=== PATIENT | female | born 1975 | race Caucasian/White ===

== ENCOUNTER 2017-12-11 21:31 | Emergency (ER) | payer BC ==
[2017-12-11 21:48] VITALS: BMI 28.6
[2017-12-11 22:11] LABS: BILIRUBIN,URINE NEGATIVE (NEGATIVE); BLOOD/HEMOGLOBIN,URINE NEGATIVE (NEGATIVE); GLUCOSE, URINE NEGATIVE (NEGATIVE); KETONES,URINE NEGATIVE (NEGATIVE); LEUKOCYTE ESTERASE ,URINE NEGATIVE (NEGATIVE); NITRITES,URINE NEGATIVE (NEGATIVE); PH,URINE 6.5 (5.0 - 8.0); PROTEIN,URINE NEGATIVE (NEGATIVE); UROBILINOGEN,URINE NORMAL (NORMAL)
--- NOTE | 2017-12-11 22:32 | DR.GENAD ---
HPI - PCP Primary Care Physician: wang garay - Complaint/Symptoms Chief Complaint:: Patient reports tightness in chest and in upper back; shortness of breath, nausea. Patient reports chest pressure is midsternal. Hx of hypertension. Had Influenza B on the and treated with Tamiflu. Following the flu, patient had upper respiratory symptoms to which she had no antibiotics. Patient reports it is hard for her to take a deep breath. Patient reports she doesn't feel good. - Nurses notes reviewed Nurses Notes Review: Yes - Source History Provided: Patient - Mode of Arrival Mode of Arrival: Ambulatory - Timing Onset of Chief Complaint: 12/11/17 Came on: Suddenly - Duration Duration: Constant Duration: Days - Severity Severity: Moderate PMH - PMH Past Medical History: Yes Past Medical History: Hypertension Past Medical History Comment: Gestational Diabetes Past Surgical History: Yes Surgical History: Past Surgical History Comment: Eye surgery- Left - Family History History of Family Medical Conditions: No - Social History Type of Tobacco Use: None Alcohol Use: None Do you use any recreational Drugs:: No - infectious screening In the last 2 months have you had wt loss of >10#?: NO Have you had fever, night sweats or hemotysis?: No Have you traveled outside the country in the last 6 months?: No Isolation: Standard ROS - Review of Systems Constitutional: No Symptoms Reported Eyes: No Symptoms Reported ENTM: No Symptoms Reported Respiratoy: No Symptoms Reported Cardiovascular: No Symptoms Reported Gastrointestinal/Abdominal: No Symptoms Reported Genitourinary: No Symptoms Reported Neurological: No Symptoms Reported Musculoskeletal: No Symptoms Reported Integumentary: No Symptoms Reported Hematologic/Lymphatic: No Symptoms Reported All Other Systems: Reviewed and Negative PE - Vital Signs Vitals: Temperature 98.0 F Pulse Rate 65 Respiratory Rate 20 Blood Pressure 151/83 O2 Sat by Pulse Oximetry 100 - General Limitations: No Limitations General Appearance: Alert - Head Head Exam: Normal Inspection - Eyes Eye exam: Normal Appearance - ENT ENT Exam: Normal External Ear Exam External Ear Exam: Normal External Inspection TM/Canal Exam: Bilateral Normal Nose Exam: Normal Nose Exam Mouth Exam: Normal Inspection Throat Exam: Normal Inspection - Neck Neck Exam: Normal Inspection - Chest Chest Inspection: Symmetric Chest Wall Rise - Respiratory Respiratory Exam: Normal Lung Sounds Bilat Respiratory Exam: Bilateral Clear to Auscultation - Cardiovascular Cardiovascular Exam: Regular Rate, Normal Rhythm, Normal Heart Sounds - Abdominal Exam Abdominal Exam: Normal Bowel Sounds, Soft. negative: Tenderness - Extremities Extremities Exam: Normal Inspection - Back Back Exam: Normal Inspection - Neurologic Neurological Exam: Alert, Oriented X3 - Psychiatric Psychiatric Exam: Normal Affect, Normal Mood - Skin Skin Exam: Normal Color MDM - Additional Information Additional Information Obtained From: Family - Differential Diagnosis Differential Diagnosis: TOOTH ACHE, GINGIVITIS Course - Treatment Treatment: SEE ORDERS - Education/Counseling Education/Counseling: Patient, Family, Education Educated On: Diagnosis, Needs for Follow Up ROR - Labs Reviewed Result Diagrams: 12/11/17 22:41 12/11/17 22:41 Laboratory: WBC 11.4 X10^3/uL (3.6-10.0) H 12/11/17 22:41 RBC 4.31 X10^6/uL (3.5-5.4) 12/11/17 22:41 Hgb 12.6 g/dL (12.0-16.0) 12/11/17 22:41 Hct 36.6 % (36.0-47.0) 12/11/17 22:41 MCV 84.8 fL (80.0-100.0) 12/11/17 22:41 MCH 29.2 pg (27.0-34.0) 12/11/17 22:41 MCHC 34.5 g/dL (33.0-35.0) 12/11/17 22:41 RDW 13.2 % (11.6-16.5) 12/11/17 22:41 Plt Count 374 X10^3/uL (150.0-450.0) 12/11/17 22:41 MPV 7.7 fL (7.4-11.0) 12/11/17 22:41 Neut % 52.5 % (42.0-75.0) 12/11/17 22:41 Lymph % 39.2 % (21.0-51.0) 12/11/17 22:41 [place] % 6.2 % (0.0-13.0) 12/11/17 22:41 Eos % 1.7 % (0.9-2.9) 12/11/17 22:41 Baso % 0.4 % (0.2-1.0) 12/11/17 22:41 Neut # 6.0 x10^3/uL (2.2-4.8) H 12/11/17 22:41 Lymph # 4.5 X10^3/uL (1.3-2.9) H 12/11/17 22:41 [place] # 0.7 x10^3/uL (0.3-0.8) 12/11/17 22:41 Eos # 0.2 x10^3/uL (0.0-0.2) 12/11/17 22:41 Baso # 0.0 X10^3/uL (0.0-0.1) 12/11/17 22:41 Absolute Nucleated RBC 0.0 /100WBC 12/11/17 22:41 D-Dimer < 100 ng/mL (0-400) 12/11/17 22:41 Sodium 140 mmol/L (136-145) 12/11/17 22:41 Corrected Sodium TNP 12/11/17 22:41 Potassium 4.0 mmol/L (3.5-5.1) 12/11/17 22:41 Chloride 104 mmol/L (98-107) 12/11/17 22:41 Carbon Dioxide 27.6 mmol/L (21-32) 12/11/17 22:41 BUN 14 mg/dL (7-18) 12/11/17 22:41 Creatinine 0.91 mg/dL (0.55-1.02) 12/11/17 22:41 Est GFR (MDRD) Af Amer > 60 (>60) 12/11/17 22:41 Est GFR (MDRD) Non-Af > 60 (>60) 12/11/17 22:41 Glucose 93 mg/dL (65-99) 12/11/17 22:41 Calcium 9.2 mg/dL (8.5-10.1) 12/11/17 22:41 Corrected Calcium TNP 12/11/17 22:41 Total Bilirubin 0.20 mg/dL (0.2-1.0) 12/11/17 22:41 AST 19 Units/L (15-37) 12/11/17 22:41 ALT 25 Units/L (12-78) 12/11/17 22:41 Alkaline Phosphatase 38 Units/L (46-116) L 12/11/17 22:41 Creatine Kinase 96 Units/L (26-192) 12/11/17 22: CK-MB (CK-2) < 1.0 ng/mL (0-4.0) 12/11/17 22: CK/CKMB % Calc 1.0 % (<4) 12/11/17 22: Troponin I < 0.02 ng/mL (0-1.5) 12/11/17 22: Total Protein 7.3 g/dL (6.4-8.2) 12/11/17: Albumin 4.0 g/dL (3.4-5.0) 12/11/17: Globulin 3.3 g/dL (2.5-4.5) 12/11/17: Albumin/Globulin Ratio 1.2 Ratio (1.1-2.1) 12/11/17: Specimen Type Clean catch urine 12/11/17 22: Urine Color Yellow (YELLOW) 12/11/17 22: Urine Appearance Clear (CLEAR) 12/11/17 22: Urine pH 6.5 (5.0 - 8.0) 12/11/17 22: Ur Specific [place] 1.010 (1.000-1.030) 12/11/17 22: Urine Protein Negative (NEGATIVE) 12/11/17 22: Urine Glucose (UA) Negative (NEGATIVE) 12/11/17 22: Urine Ketones Negative (NEGATIVE) 12/11/17 22: Urine Occult Blood Negative (NEGATIVE) 12/11/17 22: Urine Nitrite Negative (NEGATIVE) 12/11/17: Urine Bilirubin Negative (NEGATIVE) 12/11/17 22: Urine Urobilinogen Normal (NORMAL) 12/11/17 22: Ur Leukocyte Esterase Negative (NEGATIVE) 12/11/17 22: Urine RBC 0-3 /HPF (NEGATIVE) 12/11/17 22: Urine WBC 0-3 /HPF (NEGATIVE) 12/11/17 22: Ur Squamous Epith Cells Rare /HPF (NEGATIVE) 12/11/17 22: Urine Bacteria Negative /HPF (NEGATIVE) 12/11/17 22: Ur Culture Indicated? No/not indicated 12/11/17 22: H. pylori IgG Antibody Negative (NEGATIVE) 12/11/17: - Diagnosis Discharge Problem: Pain, dental, Gingivitis - Discharge Plan Condition: Stable Prescriptions: Amoxicillin [Amoxil 875 mg] 875 mg PO Q12H #20 tab Ibuprofen [MOTRIN TAB 800 MG *] 800 mg PO Q8H PRN #30 tab PRN Reason: Pain/Inflammation Ranitidine HCl [ZANTAC TAB 150 MG *] 150 mg PO BID #30 tab - Follow ups/Referrals Follow ups/Referrals: WANG GARAY [Primary Care Provider] - 3 days - Instructions Instructions: Chest Pain Observation, Acute Bronchitis, [id number] Additional Instructions: RETURN TO ED IF WORSE.
[2017-12-11 22:35] LABS: APPEARANCE,URINE CLEAR (CLEAR); BACTERIA,URINE NEGATIVE /HPF (NEGATIVE); COLOR,URINE YELLOW (YELLOW); RBC,URINE 0-3 /HPF (NEGATIVE); SQUAMOUS EPITHELIAL CELL,UR RARE /HPF (NEGATIVE)
[2017-12-11 22:50] LABS: BASOPHILS % (AUTO) 0.4 % (0.2-1.0); EOSINOPHILS # (AUTO) 0.2 x10^3/uL (0.0-0.2); EOSINOPHILS % (AUTO) 1.7 % (0.9-2.9); HEMATOCRIT 36.6 % (36.0-47.0); HEMOGLOBIN 12.6 g/dL (12.0-16.0); LYMPHOCYTES # (AUTO) 4.5 X10^3/uL (1.3-2.9); LYMPHOCYTES % (AUTO) 39.2 % (21.0-51.0); MEAN CORPUSCULAR HEMOGLOBIN 29.2 pg (27.0-34.0); MEAN CORPUSCULAR HGB CONC 34.5 g/dL (33.0-35.0); MEAN CORPUSCULAR VOLUME 84.8 fL (80.0-100.0); MEAN PLATELET VOLUME 7.7 fL (7.4-11.0); MONOCYTES # (AUTO) 0.7 x10^3/uL (0.3-0.8); MONOCYTES % (AUTO) 6.2 % (0.0-13.0); NEUTROPHILS % (AUTO) 52.5 % (42.0-75.0); PLATELET COUNT 374 X10^3/uL (150.0-450.0); RED BLOOD COUNT 4.31 X10^6/uL (3.5-5.4); RED CELL DISTRIBUTION WIDTH 13.2 % (11.6-16.5); WHITE BLOOD COUNT 11.4 X10^3/uL (3.6-10.0)
[2017-12-11 23:06] LABS: BLOOD UREA NITROGEN 14 mg/dL (7-18); CALCIUM 9.2 mg/dL (8.5-10.1); CARBON DIOXIDE 27.6 mmol/L (21-32); CHLORIDE 104 mmol/L (98-107); CREATININE 0.91 mg/dL (0.55-1.02); SODIUM 140 mmol/L (136-145); TROPONIN I < 0.02 ng/mL (0-1.5); eGFR BLACK RACES > 60 (>60); eGFR NON BLACK RACES > 60 (>60)
[2017-12-11 23:10] LABS: ALANINE AMINOTRANSFERASE 25 Units/L (12-78); ALKALINE PHOSPHATASE 38 Units/L (46-116); ASPARTATE AMINO TRANSFERASE 19 Units/L (15-37); CREATINE KINASE 96 Units/L (26-192); CREATINE KINASE MB < 1.0 ng/mL (0-4.0); TOTAL PROTEIN 7.3 g/dL (6.4-8.2)
--- NOTE | 2017-12-12 00:09 | RAD ---
PA and lateral chest. Indication: Chest tightness Comparison: None available. Findings: The lungs are clear the heart size is normal. No pleural ef fusion or pneumothorax. Trachea is midline. No osseous abnormality . Impression: No acute cardiopulmonary abnormality. Reported By:
[2017-12-12 00:37] VITALS: BP 142/70
[2017-12-12] MEDS ORDERED: TORADOL TAB PO ONE ×2 (00:41→00:50)
[2017-12-12] MEDS ORDERED: AMOXIL CAP 500 MG PO ONE ×2 (00:41→00:50)
== END 2017-12-12 01:05 | disposition home or self-care (01) ==
LOC: ER 21:31
DX: K05.10 Chronic gingivitis, plaque induced (principal); K08.89 Other specified disorders of teeth and supporting structures
CPT/HCPCS: 36415; 71046; 80053; 81001; 82550; 82553; 84484; 85025; 85378; 86677; 93005; 93010; 99283

== ENCOUNTER 2022-02-24 17:12 | Observation (INO) ==
[2022-02-24 18:03] LABS: BILIRUBIN,URINE NEGATIVE (NEGATIVE); BLOOD/HEMOGLOBIN,URINE NEGATIVE (NEGATIVE); GLUCOSE, URINE NEGATIVE (NEGATIVE); KETONES,URINE NEGATIVE (NEGATIVE); LEUKOCYTE ESTERASE ,URINE 2+ (NEGATIVE); NITRITES,URINE NEGATIVE (NEGATIVE); PROTEIN,URINE NEGATIVE (NEGATIVE); UROBILINOGEN,URINE NORMAL (NORMAL)
[2022-02-24 18:15] LABS: APPEARANCE,URINE CLEAR (CLEAR); COLOR,URINE YELLOW (YELLOW)
[2022-02-24 18:16] LABS: BACTERIA,URINE TRACE /HPF (NEGATIVE); RBC,URINE 0-2 /HPF (0-3); SQUAMOUS EPITHELIAL CELL,UR RARE /HPF (NEGATIVE)
[2022-02-24] MEDS ORDERED: ZOFRAN INJ 4 MG VIAL IVP ONE (18:17)
[2022-02-24] MEDS ORDERED: NS 1,000 ML IV 1,000 ML IV ONE (18:17)
[2022-02-24] MEDS ORDERED: MORPHINE SULFATE INJ 2 MG INJ IVP ONE (18:17)
--- NOTE | 2022-02-24 18:24 | DR.NAUSEAF ---
HPI Time Seen Time Seen by Provider: 02/24/22 18:13 Primary Care Physician Primary Care Physician: Angelo HPI Comment HPI Comment: A 46 y/o female presenting with c/o RLQ abdominal pain since late this morning. The pain is poorly characterized but localized to the RLQ. There is nausea but no vomiting or fever. The pain worsens with movement, sneezing, laughing . She denies fever. Complaints Chief Complaint:: Pt c/o rlq abd pain and nausea. She states she had a headache this am but that has resolved with ibuprofen. Pt took Hydrocodone for abd pain at 1615 with no relief. COVID-19 Coronavirus risk:travel/contact w/high risk person: No Has patient experienced Coronavirus symptoms: No Reviewed Nurses Notes Reviewed: Yes Source History Provided: Patient Mode of Arrival Mode of Arrival: Ambulatory Timing Onset of Chief Complaint: 02/24/22 Context Onset: Spontaneous Recent: None Possible Ingestion: Unknown : No Associated Signs and Symptoms Abdominal Pain Location: RLQ Symptoms: Abdominal Pain PMH PMH Past Medical History: Yes Past Medical History: Hypertension Past Surgical History: Yes Surgical History: and Hysterectomy Family History History of Family Medical Conditions: No Social History Does patient currently use any type of tobacco product: No Have you used tobacco products in the last 12 months: No Type of Tobacco Use: None Does any household member use tobacco: No Do you use any recreational Drugs:: No Lives With: Family Lives Where: Home Travel Risk Coronavirus risk:travel/contact w/high risk person: No Has patient experienced Coronavirus symptoms: No Infectious screening In the last 2 months have you had wt loss of >10#?: NO Have you had fever, night sweats or hemotysis?: No Have you traveled outside the country in the last 6 months?: No Isolation: Standard ROS Review of Systems Constitutional: No Symptoms Reported Eyes: No Symptoms Reported ENTM: No Symptoms Reported Respiratoy: No Symptoms Reported Cardiovascular: No Symptoms Reported Gastrointestinal/Abdominal: Abdominal Pain and Nausea Genitourinary: No Symptoms Reported Neurological: No Symptoms Reported Musculoskeletal: No Symptoms Reported Integumentary: No Symptoms Reported Hematologic/Lymphatic: No Symptoms Reported Endocrine: No Symptoms Reported Psychiatric: No Symptoms Reported PE Vital Signs Vitals: Temperature 98.3 F Pulse Rate 75 Respiratory Rate 24 Blood Pressure [Left Arm] 142/70 Blood Pressure 129/66 O2 Sat by Pulse Oximetry 98 General Limitations: No Limitations General Appearance: Alert and In No Apparent Distress Head Head Exam: Normal Inspection, Atraumatic and Normocephalic Eyes Eye exam: Normal Appearance and EOMI ENT ENT Exam: Normal Exam, Normal Oropharynx, Normal External Ear Exam and Mucous Membranes Moist Neck Neck Exam: Normal Inspection, Full ROM and Trachea Midline Chest Chest Inspection: Normal Inspection and Symmetric Chest Wall Rise Respiratory Respiratory Exam: Normal Lung Sounds Bilat Cardiovascular Cardiovascular Exam: Regular Rate, Normal Rhythm, Normal Heart Sounds, +S1 and +S2 Abdominal Exam Abdominal Exam: Normal Inspection, Normal Bowel Sounds, Soft, Tenderness and Rebound (RLQ); negative Distention, Guarding, Rigidity, Dimnished Bowel Sounds, Hyperactive Bowel Sounds, Hypoactive Bowel Sounds, Organomegaly, Trauma, Incision, Ascites, Mass, Bruit, Pulsatile Mass and Hernia Abdominal Tenderness: RLQ Rectal Rectal Exam: Deferred External Exam: Female: Deferred Extremities Extremities Exam: Normal Inspection and Full ROM Back Back Exam: Normal Inspection and Full ROM Neurologic Neurological Exam: Alert and Oriented X3 Psychiatric Psychiatric Exam: Normal Affect and Normal Mood Skin Skin Exam: Intact COURSE Treatment Treatment: Based on the radiology report of the Adominal/Pelvic CT Scan received, I informed the pt. of the findings and informed her that she will be admitted for treatment. I next spoke with our on-call staff surgeon (Dr. Cartagena) and briefed him on the pt's. presentation and findings. Dr. Cartagena recommended admitting the pt. to his service and he will come see her once she gets into her room upstairs and plan on scheduling her case for early tomorrow morning. I informed the pt. also of Dr. Cartagena's paln. Reevaluation 1st: Unchanged Education/Counseling Education/Counseling: Patient, Family, Education and Counseling Educated On: Treatment, Diagnosis, Prognosis and Needs for Follow Up ROR Labs Reviewed Result Diagrams: 02/24/22 18:34 02/24/22 18:34 Laboratory: WBC 21.5 X10^3/uL (3.6-10.0) H 02/24/22 18:34 RBC 4.83 X10^6/uL (3.5-5.4) 02/24/22 18:34 Hgb 14.3 g/dL (12.0-16.0) 02/24/22 18:34 Hct 41.1 % (36.0-47.0) 02/24/22 18:34 MCV 85.2 fL (80.0-100.0) 02/24/22 18:34 MCH 29.6 pg (27.0-34.0) 02/24/22 18:34 MCHC 34.7 g/dL (33.0-35.0) 02/24/22 18:34 RDW 13.6 % (11.6-16.5) 02/24/22 18:34 Plt Count 332 X10^3/uL (150.0-450.0) 02/24/22 18:34 MPV 7.4 fL (7.4-11.0) 02/24/22 18:34 Neut % (Auto) 84.3 % (42.0-75.0) H 02/24/22 18:34 Lymph % (Auto) 8.9 % (21.0-51.0) L 02/24/22 18:34 [place] % (Auto) 6.4 % (0.0-13.0) 02/24/22 18:34 Eos % (Auto) 0.3 % (0.9-2.9) L 02/24/22 18:34 Baso % (Auto) 0.1 % (0.2-1.0) L 02/24/22 18:34 Neut # (Auto) 18.1 x10^3/uL (2.2-4.8) H 02/24/22 18:34 Lymph # (Auto) 1.9 X10^3/uL (1.3-2.9) 02/24/22 18:34 [place] # (Auto) 1.4 x10^3/uL (0.3-0.8) H 02/24/22 18:34 Eos # (Auto) 0.1 x10^3/uL (0.0-0.2) 02/24/22 18:34 Baso # (Auto) 0.0 X10^3/uL (0.0-0.1) 02/24/22 18:34 Absolute Nucleated RBC 0.1 /100WBC 02/24/22 18:34 Sodium 135 mmol/L (136-145) L 02/24/22 18:34 Corrected Sodium TNP 02/24/22 18:34 Potassium 3.8 mmol/L (3.5-5.1) 02/24/22 18:34 Chloride 99 mmol/L (98-107) 02/24/22 18:34 Carbon Dioxide 28.1 mmol/L (21-32) 02/24/22 18:34 BUN 14 mg/dL (7-18) 02/24/22 18:34 Creatinine 1.02 mg/dL (0.55-1.02) 02/24/22 18:34 Est GFR (MDRD) Af Amer > 60 (>60) 02/24/22 18:34 Est GFR (MDRD) Non-Af > 60 (>60) 02/24/22 18:34 Glucose 105 mg/dL (65-99) H 02/24/22 18:34 Calcium 9.3 mg/dL (8.5-10.1) 02/24/22 18:34 Corrected Calcium TNP 02/24/22 18:34 Total Bilirubin 0.60 mg/dL (0.2-1.0) 02/24/22 18:34 AST 21 Units/L (15-37) 02/24/22 18:34 ALT 30 Units/L (12-78) 02/24/22 18:34 Alkaline Phosphatase 49 Units/L (46-116) 02/24/22 18:34 Total Protein 7.4 g/dL (6.4-8.2) 02/24/22 18:34 Albumin 4.1 g/dL (3.4-5.0) 02/24/22 18:34 Globulin 3.3 g/dL (2.5-4.5) 02/24/22 18:34 Albumin/Globulin Ratio 1.2 Ratio (1.1-2.1) 02/24/22 18:34 Specimen Type Clean catch urine 02/24/22 17:56 Urine Color Yellow (YELLOW) 02/24/22 17:56 Urine Appearance Clear (CLEAR) 02/24/22 17:56 Urine pH 8.0 (5.0 - 8.0) 02/24/22 17:56 Ur Specific [place] 1.010 (1.000-1.030) 02/24/22 17:56 Urine Protein Negative (NEGATIVE) 02/24/22 17:56 Urine Glucose (UA) Negative (NEGATIVE) 02/24/22 17:56 Urine Ketones Negative (NEGATIVE) 02/24/22 17:56 Urine Blood Negative (NEGATIVE) 02/24/22 17:56 Urine Nitrite Negative (NEGATIVE) 02/24/22 17:56 Urine Bilirubin Negative (NEGATIVE) 02/24/22 17:56 Urine Urobilinogen Normal (NORMAL) 02/24/22 17:56 Ur Leukocyte Esterase 2+ (NEGATIVE) 02/24/22 17:56 Urine RBC 0-2 /HPF (0-3) 02/24/22 17:56 Urine WBC 10-20 /HPF (0-5) A 02/24/22 17:56 Ur Squamous Epith Cells Rare /HPF (NEGATIVE) 02/24/22 17:56 Urine Bacteria Trace /HPF (NEGATIVE) 02/24/22 17:56 Ur Culture Indicated? Yes/culture set up 02/24/22 17:56 Opioid Opioid Risk Tool Age (Prasanth box if 16-45): No History of Preadolescent Sexual Abuse: No Total: 0 Total Score Risk Category: Low Risk Copyright: Kade GUPTA predicting aberrant behaviors Diagnosis Discharge Problem: Acute appendicitis Qualifiers: Acute appendicitis type: unspecified acute appendicitis type Qualified Code(s): K35.80 - Unspecified acute appendicitis UTI (urinary tract infection) Qualifiers: Urinary tract infection type: acute cystitis Hematuria presence: without hematuria Qualified Code(s): N30.00 - Acute cystitis without hematuria Instructions Forms: Precautions for COVID19 [facility] Patient Portal Social Distancing ADDITIONAL NOTES Additional Notes Additional Notes: Name: Cecil TOPETE#: [id number]: [id number] : 1975Sex: FLocation: ER Order Number(s): [id number](s):ABDOMEN/PELVIS WITH CON Ordering Physician: MARITZA AVILES Primary Care: TERESA PLAZA Service Date: 02/24/22 Service Time: 1816 HISTORY Complaining of right lower quadrant abd pain and nausea. She states she had a headache this am but that has resolved with ibuprofen. Pt took Hydrocodone for abd pain at 1615 with no relief. STUDY ABDOMEN/PELVIS WITH CON COMPARISON None TECHNIQUE Axial CT images of the abdomen and pelvis were obtained after the administration of IV contrast and reformatted into coronal and sagittal planes for further evaluation. Radiation dose: 746.60 mGy-cm total DLP FINDINGS Lung bases are clear. Stomach appears normal. Solid visceral organs of the upper abdomen are unremarkable. Gallbladder appears normal with no biliary dilatation. Small right renal cyst. 3 mm nonobstructing right nephrolith. Otherwise, unremarkable appearance of the kidneys and ureters. Unremarkable appearance of the urinary bladder. 4.3 cm right and 2.2 cm left ovarian cysts; within physiologic range for the patient's age. Possible fibroid in the left uterine body; not well delineated. Mild prominence of the pelvic vasculature bilaterally. Trace fluid in the pelvis; likely physiologic. Unremarkable appearance of the large and small bowel. Appendix is widened up to 11 mm with a slightly thickened wall and mild adjacent inflammatory changes. No pneumoperitoneum. No adenopathy. No acute osseous abnormality. IMPRESSION 1. Findings are most consistent with acute appendicitis with no evidence of perforation or abscess formation. 2. 4.3 cm right and 2.2 cm left ovarian cysts; within physiologic range for the patient's age. Possible fibroid in the left uterine body; not well delineated. 3. Mild prominence of the pelvic vasculature bilaterally; could be seen with pelvic congestion syndrome. 4. 3 mm nonobstructing right nephrolith. Electronically signed by: Luc Mix (Feb 24, 2022 21:53:18) Report Electronically signed: 02/24/22 [id number] CC: Maritza Aviles
[2022-02-24] MEDS ORDERED: ZOFRAN INJ 4 MG VIAL ONE (18:28)
[2022-02-24] MEDS ORDERED: MORPHINE SULFATE INJ 2 MG INJ ONE (18:28)
[2022-02-24] MEDS ORDERED: NS 1,000 ML IV 1,000 ML ONE (18:28)
[2022-02-24 18:38] LABS: MEAN CORPUSCULAR HEMOGLOBIN 29.6 pg (27.0-34.0); MEAN CORPUSCULAR HGB CONC 34.7 g/dL (33.0-35.0); RED CELL DISTRIBUTION WIDTH 13.6 % (11.6-16.5)
[2022-02-24 18:43] LABS: BASOPHILS % (AUTO) 0.1 % (0.2-1.0); EOSINOPHILS # (AUTO) 0.1 x10^3/uL (0.0-0.2); EOSINOPHILS % (AUTO) 0.3 % (0.9-2.9); HEMATOCRIT 41.1 % (36.0-47.0); HEMOGLOBIN 14.3 g/dL (12.0-16.0); LYMPHOCYTES # (AUTO) 1.9 X10^3/uL (1.3-2.9); LYMPHOCYTES % (AUTO) 8.9 % (21.0-51.0); MEAN CORPUSCULAR VOLUME 85.2 fL (80.0-100.0); MEAN PLATELET VOLUME 7.4 fL (7.4-11.0); MONOCYTES # (AUTO) 1.4 x10^3/uL (0.3-0.8); MONOCYTES % (AUTO) 6.4 % (0.0-13.0); NEUTROPHILS # (AUTO) 18.1 x10^3/uL (2.2-4.8); NEUTROPHILS % (AUTO) 84.3 % (42.0-75.0); RED BLOOD COUNT 4.83 X10^6/uL (3.5-5.4); WHITE BLOOD COUNT 21.5 X10^3/uL (3.6-10.0)
[2022-02-24 18:49] LABS: ALANINE AMINOTRANSFERASE 30 Units/L (12-78); ALBUMIN 4.1 g/dL (3.4-5.0); ALKALINE PHOSPHATASE 49 Units/L (46-116); ASPARTATE AMINO TRANSFERASE 21 Units/L (15-37); BLOOD UREA NITROGEN 14 mg/dL (7-18); CALCIUM 9.3 mg/dL (8.5-10.1); CARBON DIOXIDE 28.1 mmol/L (21-32); CHLORIDE 99 mmol/L (98-107); CREATININE 1.02 mg/dL (0.55-1.02); SODIUM 135 mmol/L (136-145); TOTAL PROTEIN 7.4 g/dL (6.4-8.2); eGFR NON BLACK RACES > 60 (>60)
[2022-02-24] MEDS ORDERED: NS 100 ML IV 100 ML ONE (19:13)
[2022-02-24] MEDS ORDERED: ROCEPHIN 1 GRAM IV PREMIX 1 G/50 ML IV.SOLN. IV ONE (20:21)
[2022-02-24] MEDS: ROCEPHIN 1 GRAM IV PREMIX 1 G/50 ML IV.SOLN. IV ONE ×2 (20:31→20:32)
--- NOTE | 2022-02-24 21:54 | CT ---
HISTORYComplaining of right lower quadrant abd pain and nausea. She states she had a headache this am but that has resolved with ibuprofen. Pt took Hydrocodone for abd pain at 1615 with no relief.STUDYABDOMEN/PELVIS WITH CONCOMPARISONNoneTECHNIQUEAxial CT images of the abdomen and pelvis were obtained after the administration of IV contrast and reformatted into coronal and sagittal planes for further evaluation.Radiation dose: 746.60 mGy-cm total DLPFINDINGSLung bases are clear.Stomach appears normal.Solid visceral organs of the upper abdomen are unremarkable.Gallbladder appears normal with no biliary dilatation.Small right renal cyst.3 mm nonobstructing right nephrolith.Otherwise, unremarkable appearance of the kidneys and ureters.Unremarkable appearance of the urinary bladder.4.3 cm right and 2.2 cm left ovarian cysts; within physiologic range for the patient's age.Possible fibroid in the left uterine body; not well delineated.Mild prominence of the pelvic vasculature bilaterally.Trace fluid in the pelvis; likely physiologic.Unremarkable appearance of the large and small bowel.Appendix is widened up to 11 mm with a slightly thickened wall and mild adjacent inflammatory changes.No pneumoperitoneum.No adenopathy.No acute osseous abnormality.IMPRESSION1. Findings are most consistent with acute appendicitis with no evidence of perforation or abscess formation.2. 4.3 cm right and 2.2 cm left ovarian cysts; within physiologic range for the patient's age. Possible fibroid in the left uterine body; not well delineated.3. Mild prominence of the pelvic vasculature bilaterally; could be seen with pelvic congestion syndrome.4. 3 mm nonobstructing right nephrolith.Electronically signed by: Luc Mix (Feb 24, 2022 21:53:18)
--- NOTE | 2022-02-25 00:05 | DR.H&P ---
H&P History & Physical for Day of: H&P Date: 02/25/22 Chief Complaint Chief Complaint: Right lower quadrant pain Allergies Allergies Allergy/AdvReac Type Severity Reaction Status Date / Time No Known Drug Allergies Allergy Unverified 12/11/17 21:33 History of Present Illness History of Present Illness: 46 yo female with onset today of nausea and vomiting followed by onset of diffuse lower abdominal pain now relocated to the [facility]. Seen in the ER and CT consistent with acute appendicitis. Past Medical History Past Medical History: Hypertension Past Surgical History Surgical History: and Other Additional Surgical History: resection of both fallopian tubes Social History Does patient currently use any type of tobacco product: No Have you used tobacco products in the last 12 months: No Type of Tobacco Use: None Does any household member use tobacco: No Alcohol Use: None Drug Use: None Prescription drug monitoring program results: PDMP reviewed and no concerns identified Medications Home Medications: No Known Drug Allergies Allergy (Unverified 12/11/17 21:33) benzepril/ HCTZ Labs Result Diagrams: 02/24/22 18:34 02/24/22 18:34 Labs: Laboratory WBC 21.5 X10^3/uL (3.6-10.0) H 02/24/22 18:34 RBC 4.83 X10^6/uL (3.5-5.4) 02/24/22 18:34 Hgb 14.3 g/dL (12.0-16.0) 02/24/22 18:34 Hct 41.1 % (36.0-47.0) 02/24/22 18:34 MCV 85.2 fL (80.0-100.0) 02/24/22 18:34 MCH 29.6 pg (27.0-34.0) 02/24/22 18:34 MCHC 34.7 g/dL (33.0-35.0) 02/24/22 18:34 RDW 13.6 % (11.6-16.5) 02/24/22 18:34 Plt Count 332 X10^3/uL (150.0-450.0) 02/24/22 18:34 MPV 7.4 fL (7.4-11.0) 02/24/22 18:34 Neut % (Auto) 84.3 % (42.0-75.0) H 02/24/22 18:34 Lymph % (Auto) 8.9 % (21.0-51.0) L 02/24/22 18:34 [place] % (Auto) 6.4 % (0.0-13.0) 02/24/22 18:34 Eos % (Auto) 0.3 % (0.9-2.9) L 02/24/22 18:34 Baso % (Auto) 0.1 % (0.2-1.0) L 02/24/22 18:34 Neut # (Auto) 18.1 x10^3/uL (2.2-4.8) H 02/24/22 18:34 Lymph # (Auto) 1.9 X10^3/uL (1.3-2.9) 02/24/22 18:34 [place] # (Auto) 1.4 x10^3/uL (0.3-0.8) H 02/24/22 18:34 Eos # (Auto) 0.1 x10^3/uL (0.0-0.2) 02/24/22 18:34 Baso # (Auto) 0.0 X10^3/uL (0.0-0.1) 02/24/22 18:34 Absolute Nucleated RBC 0.1 /100WBC 02/24/22 18:34 Sodium 135 mmol/L (136-145) L 02/24/22 18:34 Corrected Sodium TNP 02/24/22 18:34 Potassium 3.8 mmol/L (3.5-5.1) 02/24/22 18:34 Chloride 99 mmol/L (98-107) 02/24/22 18:34 Carbon Dioxide 28.1 mmol/L (21-32) 02/24/22 18:34 BUN 14 mg/dL (7-18) 02/24/22 18:34 Creatinine 1.02 mg/dL (0.55-1.02) 02/24/22 18:34 Est GFR (MDRD) Af Amer > 60 (>60) 02/24/22 18:34 Est GFR (MDRD) Non-Af > 60 (>60) 02/24/22 18:34 Glucose 105 mg/dL (65-99) H 02/24/22 18:34 Calcium 9.3 mg/dL (8.5-10.1) 02/24/22 18:34 Corrected Calcium TNP 02/24/22 18:34 Total Bilirubin 0.60 mg/dL (0.2-1.0) 02/24/22 18:34 AST 21 Units/L (15-37) 02/24/22 18:34 ALT 30 Units/L (12-78) 02/24/22 18:34 Alkaline Phosphatase 49 Units/L (46-116) 02/24/22 18:34 Total Protein 7.4 g/dL (6.4-8.2) 02/24/22 18:34 Albumin 4.1 g/dL (3.4-5.0) 02/24/22 18:34 Globulin 3.3 g/dL (2.5-4.5) 02/24/22 18:34 Albumin/Globulin Ratio 1.2 Ratio (1.1-2.1) 02/24/22 18:34 Specimen Type Clean catch urine 02/24/22 17:56 Urine Color Yellow (YELLOW) 02/24/22 17:56 Urine Appearance Clear (CLEAR) 02/24/22 17:56 Urine pH 8.0 (5.0 - 8.0) 02/24/22 17:56 Ur Specific [place] 1.010 (1.000-1.030) 02/24/22 17:56 Urine Protein Negative (NEGATIVE) 02/24/22 17:56 Urine Glucose (UA) Negative (NEGATIVE) 02/24/22 17:56 Urine Ketones Negative (NEGATIVE) 02/24/22 17:56 Urine Blood Negative (NEGATIVE) 02/24/22 17:56 Urine Nitrite Negative (NEGATIVE) 02/24/22 17:56 Urine Bilirubin Negative (NEGATIVE) 02/24/22 17:56 Urine Urobilinogen Normal (NORMAL) 02/24/22 17:56 Ur Leukocyte Esterase 2+ (NEGATIVE) 02/24/22 17:56 Urine RBC 0-2 /HPF (0-3) 02/24/22 17:56 Urine WBC 10-20 /HPF (0-5) A 02/24/22 17:56 Ur Squamous Epith Cells Rare /HPF (NEGATIVE) 02/24/22 17:56 Urine Bacteria Trace /HPF (NEGATIVE) 02/24/22 17:56 Ur Culture Indicated? Yes/culture set up 02/24/22 17:56 Review of Systems Constitutional: See HPI Eyes: No Symptoms Reported ENT: No Symptoms Reported Respiratory: No Symptoms Reported Cardiovascular: No Symptoms Reported Gastrointestinal: See HPI Musculoskeletal: No Symptoms Reported Skin: No Symptoms Reported Neurological: No Symptoms Reported Physical Exam Vital Signs: Temperature 98.3 F Pulse Rate 75 Respiratory Rate 24 Blood Pressure [Left Arm] 142/70 Blood Pressure 129/66 O2 Sat by Pulse Oximetry 98 Oriented: Normal, Time, Person and Place Eyes: Normal Ear: Normal Nose: Normal Throat: Normal Respiratory: Clear Throughout Cardiovascular: Normal : Normal Auscultation: Bowel Sounds: Normal Tenderness: RLQ (with rebound) Skin: Normal Musculoskeletal: Normal Psychiatric: Normal Mood Description: Calm Affect: Normal Speech Pattern: Clear Assessment/Plan (1) Acute appendicitis: Qualifiers: Acute appendicitis type: unspecified acute appendicitis type Qualified Code(s): K35.80 - Unspecified acute appendicitis Status: Acute Plan: Already received IV Rocephin. Hydrate and plan laparoscopic appendectomy in the AM. Risks and benefits discussed with the patient and she agrees to proceed. (2) Hypertension: Narrative Support Text: s Status: Acute Plan: start her usual medications Review H&P Reviewed: Yes Patient was examined?: Yes
[2022-02-25] MEDS ORDERED: DILAUDID INJ IVP PRN ×2 (00:14→10:09)
[2022-02-25 00:30] VITALS: BMI 31.7
[2022-02-25] MEDS ORDERED: LR 1,000 ML IV 1,000 ML IV SCH ×2 (01:00→03:36)
[2022-02-25] MEDS ORDERED: ZOFRAN INJ 4 MG VIAL IVP PRN ×2 (03:36→10:09)
[2022-02-25] MEDS ORDERED: TYLENOL 325 MG TAB PO PRN (03:36)
[2022-02-25] MEDS ORDERED: MORPHINE SULFATE INJ 2 MG INJ IVP PRN (03:36)
[2022-02-25 05:05] LABS: BASOPHILS % (AUTO) 0.1 % (0.2-1.0); EOSINOPHILS % (AUTO) 0.2 % (0.9-2.9); HEMATOCRIT 38.2 % (36.0-47.0); LYMPHOCYTES % (AUTO) 17.4 % (21.0-51.0); MEAN CORPUSCULAR HEMOGLOBIN 29.1 pg (27.0-34.0); MEAN CORPUSCULAR VOLUME 85.6 fL (80.0-100.0); MEAN PLATELET VOLUME 7.6 fL (7.4-11.0); MONOCYTES % (AUTO) 6.1 % (0.0-13.0); NEUTROPHILS # (AUTO) 14.7 x10^3/uL (2.2-4.8); NEUTROPHILS % (AUTO) 76.2 % (42.0-75.0); RED BLOOD COUNT 4.46 X10^6/uL (3.5-5.4); RED CELL DISTRIBUTION WIDTH 13.3 % (11.6-16.5); WHITE BLOOD COUNT 19.3 X10^3/uL (3.6-10.0)
[2022-02-25 05:06] LABS: LYMPHOCYTES # (AUTO) 3.4 X10^3/uL (1.3-2.9); MONOCYTES # (AUTO) 1.2 x10^3/uL (0.3-0.8)
[2022-02-25 05:32] LABS: ALANINE AMINOTRANSFERASE 27 Units/L (12-78); ALBUMIN 3.6 g/dL (3.4-5.0); ALKALINE PHOSPHATASE 46 Units/L (46-116); ASPARTATE AMINO TRANSFERASE 18 Units/L (15-37); BLOOD UREA NITROGEN 12 mg/dL (7-18); CALCIUM 8.6 mg/dL (8.5-10.1); CARBON DIOXIDE 28.1 mmol/L (21-32); CHLORIDE 101 mmol/L (98-107); COR NA(FOR HYPERGLY) 137 mmol/L (136-145); CREATININE 0.93 mg/dL (0.55-1.02); SODIUM 136 mmol/L (136-145); TOTAL PROTEIN 6.8 g/dL (6.4-8.2); eGFR NON BLACK RACES > 60 (>60)
--- NOTE | 2022-02-25 06:15 | RAD ---
HISTORYPRE-OP; ACUTE APPENDICITIS Relevant Clinical InformationSTUDYCHEST, 1 VIEWCOMPARISONFINDINGSThe trachea is midline. The cardiac silhouette is unremarkable. The lungs are clear without focal infiltrate or effusion. The bony thorax is unremarkable.IMPRESSIONNo acute cardiopulmonary findings .Electronically signed by: Alon Vasquez (Feb 25, 2022 06:14:42)
[2022-02-25] MEDS ORDERED: MARCAINE 0.5% ONE (08:36)
[2022-02-25] MEDS ORDERED: FENTANYL VIAL INJ 100 mcg ONE (08:47)
[2022-02-25] MEDS ORDERED: VERSED ONE (08:47)
[2022-02-25] MEDS ORDERED: OFIRMEV IV 1000 MG VIAL 1,000 MG/100 ML VIAL IV ONE (08:48)
[2022-02-25] MEDS ORDERED: ZOFRAN INJ 4 MG VIAL ONE (08:48)
[2022-02-25] MEDS ORDERED: DIPRIVAN VIAL 20 ML ONE (08:48)
[2022-02-25] MEDS ORDERED: ZEMURON 100 MG VIAL ONE (08:48)
[2022-02-25] MEDS ORDERED: BRIDION ONE (08:48)
[2022-02-25] MEDS ORDERED: TORADOL 30 MG VIAL ONE (08:48)
[2022-02-25] MEDS ORDERED: PEPCID 20 MG VIAL ONE (08:48)
[2022-02-25] MEDS ORDERED: SUPRANE ONE ×2 (08:57→09:29)
[2022-02-25] MEDS ORDERED: LOTENSIN TAB 10 MG PO SCH (09:00)
[2022-02-25] MEDS ORDERED: ANCEF VIAL 1 GRAM ONE (09:04)
[2022-02-25] MEDS ORDERED: LR 1,000 ML IV 1,000 ML IV ONE (09:04)
[2022-02-25] MEDS ORDERED: NS 1,000 ML IV 1,000 ML ONE (09:04)
[2022-02-25] MEDS ORDERED: XYLOCAINE JELLY TOP ONE (09:29)
[2022-02-25] MEDS ORDERED: BARHEMSYS INJ IVP PRN (10:09)
[2022-02-25] MEDS ORDERED: PHENERGAN INJ 25 MG IM PRN (10:09)
[2022-02-25] MEDS ORDERED: BENADRYL INJ 50 MG VIAL IVP PRN (10:09)
--- NOTE | 2022-02-25 10:17 | OR.IMMED ---
IMMEDIATE POST-OP NOTE Immediate Post-Op Note Pre-Op Diagnosis: Acute appendicitis Post-Op Diagnosis: same Procedure: laparoscopic appendectomy Description of Procedure: see operative summary Surgeon/Order Processing Clerk: Mitzi Findings: acute appendicitis Specimens Removed: appendix Estimated Blood Loss: less than 25 cc's Drains: NONE Complications: none Discharge Progress Notes: pacu then to floor. If tolerating ,I will discharge h er later today on PS Cipro and Percocet for pain. Condition: Stable Final Diagnosis: Acute appendicitis
[2022-02-25] MEDS ORDERED: PERCOCET TAB 5/325 MG PO PRN (10:18)
[2022-02-25] MEDS ORDERED: DILAUDID INJ ONE (10:25)
[2022-02-25] MEDS: DILAUDID INJ IVP PRN ×2 (10:25→10:30)
[2022-02-25 12:05] VITALS: BP 121/59
--- NOTE | 2022-02-25 14:58 | W.DIS.FURT ---
Summary of Discharge Discharge Summary of Date Date of Exam: 02/25/22 Admission Date Date of Admission: 02/24/22 Admission Diagnosis Patient Problems (Updated 02/25/22 @ 00:00 by Ermias Cartagena) UTI (urinary tract infection) (Acute) N39.0 Acute appendicitis (Acute) K35.80 Hospital Course: 46 year old female who had onset of abdominal pain ,nausea and vomiting which was globally of the abdomen and became more localized in the right lower quadrant. She was evaluated in the emergency room and CT scan was consistent with acute appendicitis with no evidence of perforation . [place] was [address]. She was admitted and given IV antibiotics the night of admission night and in the A. M. underwent an uncomplicated laparoscopic appendectomy showing acute appendicitis. She has done well and is tolerating a diet. She will be discharged home on her usual medications plus ciprofloxacin 500 mg BID x 7 days and Percocet, 5 mg tablets every 6 hours during pain Vital Signs: Vital Signs (72 hours) 02/24/22 17:13 02/24/22 18:15 02/24/22 18:37 Temperature 98.3 F Pulse Rate 69 73 Pulse Rate [Brachial] Respiratory Rate 30 H 24 24 Blood Pressure 124/71 129/66 Blood Pressure [Left Arm] O2 Sat by Pulse Oximetry 100 100 02/24/22 19:26 02/24/22 19:30 02/24/22 23:35 Temperature 98.1 F Pulse Rate 79 75 Pulse Rate [Brachial] 79 Respiratory Rate 18 Blood Pressure Blood Pressure [Left Arm] 126/70 O2 Sat by Pulse Oximetry 99 98 97 02/25/22 03:37 02/25/22 04:00 02/25/22 04:07 Temperature 98.5 F Pulse Rate Pulse Rate [Brachial] 76 Respiratory Rate 18 18 18 Blood Pressure Blood Pressure [Left Arm] 117/62 O2 Sat by Pulse Oximetry 97 02/25/22 08:00 02/25/22 09:21 02/25/22 10:23 Temperature 98.6 F 97.0 F L Pulse Rate 80 Pulse Rate [Brachial] 66 Respiratory Rate 18 16 18 Blood Pressure 154/89 Blood Pressure [Left Arm] 121/59 O2 Sat by Pulse Oximetry 98 100 02/25/22 10:25 02/25/22 10:28 02/25/22 10:30 Temperature Pulse Rate 80 Pulse Rate [Brachial] Respiratory Rate 18 18 18 Blood Pressure 163/86 Blood Pressure [Left Arm] O2 Sat by Pulse Oximetry 100 02/25/22 10:33 02/25/22 10:38 02/25/22 10:43 Temperature Pulse Rate 75 68 65 Pulse Rate [Brachial] Respiratory Rate 18 18 18 Blood Pressure 190/86 148/64 133/68 Blood Pressure [Left Arm] O2 Sat by Pulse Oximetry 100 100 97 02/25/22 10:48 02/25/22 10:53 02/25/22 13:55 Temperature Pulse Rate 65 65 Pulse Rate [Brachial] Respiratory Rate 18 18 20 Blood Pressure 125/66 135/65 Blood Pressure [Left Arm] O2 Sat by Pulse Oximetry 96 96 Labs: Laboratory Last Values WBC 19.3 X10^3/uL (3.6-10.0) H 02/25/22 04:30 RBC 4.46 X10^6/uL (3.5-5.4) 02/25/22 04:30 Hgb 13.0 g/dL (12.0-16.0) 02/25/22 04:30 Hct 38.2 % (36.0-47.0) 02/25/22 04:30 MCV 85.6 fL (80.0-100.0) 02/25/22 04:30 MCH 29.1 pg (27.0-34.0) 02/25/22 04:30 MCHC 34.0 g/dL (33.0-35.0) 02/25/22 04:30 RDW 13.3 % (11.6-16.5) 02/25/22 04:30 Plt Count 308 X10^3/uL (150.0-450.0) 02/25/22 04:30 MPV 7.6 fL (7.4-11.0) 02/25/22 04:30 Neut % (Auto) 76.2 % (42.0-75.0) H 02/25/22 04:30 Lymph % (Auto) 17.4 % (21.0-51.0) L 02/25/22 04:30 [place] % (Auto) 6.1 % (0.0-13.0) 02/25/22 04:30 Eos % (Auto) 0.2 % (0.9-2.9) L 02/25/22 04:30 Baso % (Auto) 0.1 % (0.2-1.0) L 02/25/22 04:30 Neut # (Auto) 14.7 x10^3/uL (2.2-4.8) H 02/25/22 04:30 Lymph # (Auto) 3.4 X10^3/uL (1.3-2.9) H 02/25/22 04:30 [place] # (Auto) 1.2 x10^3/uL (0.3-0.8) H 02/25/22 04:30 Eos # (Auto) 0.0 x10^3/uL (0.0-0.2) 02/25/22 04:30 Baso # (Auto) 0.0 X10^3/uL (0.0-0.1) 02/25/22 04:30 Absolute Nucleated RBC 0.0 /100WBC 02/25/22 04:30 Sodium 136 mmol/L (136-145) 02/25/22 04:30 Corrected Sodium 137 mmol/L (136-145) 02/25/22 04:30 Potassium 3.8 mmol/L (3.5-5.1) 02/25/22 04:30 Chloride 101 mmol/L (98-107) 02/25/22 04:30 Carbon Dioxide 28.1 mmol/L (21-32) 02/25/22 04:30 BUN 12 mg/dL (7-18) 02/25/22 04:30 Creatinine 0.93 mg/dL (0.55-1.02) 02/25/22 04:30 Est GFR (MDRD) Af Amer > 60 (>60) 02/25/22 04:30 Est GFR (MDRD) Non-Af > 60 (>60) 02/25/22 04:30 Glucose 127 mg/dL (65-99) H 02/25/22 04:30 Calcium 8.6 mg/dL (8.5-10.1) 02/25/22 04:30 Corrected Calcium TNP 02/25/22 04:30 Total Bilirubin 0.80 mg/dL (0.2-1.0) 02/25/22 04:30 AST 18 Units/L (15-37) 02/25/22 04:30 ALT 27 Units/L (12-78) 02/25/22 04:30 Alkaline Phosphatase 46 Units/L (46-116) 02/25/22 04:30 Total Protein 6.8 g/dL (6.4-8.2) 02/25/22 04:30 Albumin 3.6 g/dL (3.4-5.0) 02/25/22 04:30 Globulin 3.2 g/dL (2.5-4.5) 02/25/22 04:30 Albumin/Globulin Ratio 1.1 Ratio (1.1-2.1) 02/25/22 04:30 Specimen Type Clean catch urine 02/24/22 17:56 Urine Color Yellow (YELLOW) 02/24/22 17:56 Urine Appearance Clear (CLEAR) 02/24/22 17:56 Urine pH 8.0 (5.0 - 8.0) 02/24/22 17:56 Ur Specific [place] 1.010 (1.000-1.030) 02/24/22 17:56 Urine Protein Negative (NEGATIVE) 02/24/22 17:56 Urine Glucose (UA) Negative (NEGATIVE) 02/24/22 17:56 Urine Ketones Negative (NEGATIVE) 02/24/22 17:56 Urine Blood Negative (NEGATIVE) 02/24/22 17:56 Urine Nitrite Negative (NEGATIVE) 02/24/22 17:56 Urine Bilirubin Negative (NEGATIVE) 02/24/22 17:56 Urine Urobilinogen Normal (NORMAL) 02/24/22 17:56 Ur Leukocyte Esterase 2+ (NEGATIVE) 02/24/22 17:56 Urine RBC 0-2 /HPF (0-3) 02/24/22 17:56 Urine WBC 10-20 /HPF (0-5) A 02/24/22 17:56 Ur Squamous Epith Cells Rare /HPF (NEGATIVE) 02/24/22 17:56 Urine Bacteria Trace /HPF (NEGATIVE) 02/24/22 17:56 Ur Culture Indicated? Yes/culture set up 02/24/22 17:56 Tissue Pathology To follow 02/25/22 10:00 Reason For Visit: ACUTE APPENDICITIS, UTI Discharge Date Discharge Date: 02/25/22 Discharge Diagnosis All Active Problems (Updated 02/25/22 @ 00:00 by Ermias Catragena) Hypertension (Acute) Chest pain (Acute) Sinusitis (Acute) Bronchitis (Acute) UTI (urinary tract infection) (Acute) Acute appendicitis (Acute) Plan of Treatment: Continue with present treatment and follow up plan. Pt is to keep follow up appointment as instructed and take medications as ordered. Discharge Medications Discharge Medications: No Known Drug Allergies Allergy (Unverified 12/11/17 21:33) New Prescriptions ciprofloxacin HCl [Cipro] 500 mg PO Q12H #14 tab 02/25/22 [Rx] oxycodone-acetaminophen [Percocet] 1 tab PO Q6H PRN #20 tab MDD 4 02/25/22 [Rx] Follow up and Referral Follow Up: 1 Week (Dr. Cartagena) Discharge Disposition Assessment: No acute distress noted at discharge. Discharge Disposition: stable Discharge Condition: stable Discharge Plan Discharge Plan Hospital Course: 46 year old female who had onset of abdominal pain ,nausea and vomiting which was globally of the abdomen and became more localized in the right lower quadrant. She was evaluated in the emergency room and CT scan was consistent with acute appendicitis with no evidence of perforation . [place] [address]. She was admitted and given IV antibiotics the night of admission night and in the A. M. underwent an uncomplicated laparoscopic appendectomy showing acute appendicitis. She has done well and is tolerating a diet. She will be discharged home on her usual medications plus ciprofloxacin 500 mg BID x 7 days and Percocet, 5 mg tablets every 6 hours during pain Patient Disposition: 01 HOME, SELF-CARE Condition: Stable Health Concerns: Post Hospitalization: new medications and changes needed to prevent readmission or further decline. Pt educated and given instructions on all concerns. Care Plan Goals: Problem: Infection Goal: Temperature within normal limits. Resolved infection. Instructions: Follow provided instructions. Follow up with primary physician as directed. Contact primary care physician or report to the closest Emergency Room if condition worsens. Plan of Treatment: Continue with present treatment and follow up plan. Pt is to keep follow up appointment as instructed and take medications as ordered. Assessment: No acute distress noted at discharge. Prescription drug monitoring program results: PDMP reviewed and no concerns identified Prescriptions: New ciprofloxacin HCl [Cipro] 500 mg Tablet 500 mg PO Q12H Qty: 14 RF: 0 oxycodone-acetaminophen [Percocet] 5-325 mg Tablet 1 tab PO Q6H MDD 4 PRNQty: 20 RF: 0 Orders to Discharge Patient Discharge Orders: Discharge (Routine); Ordered 02/25/22 Ordered By: Ermias Cartagena Follow ups/Referrals Follow ups/Referrals: BRI ZAPATA [Nurse Practitioner] - 1 WEEK Ermias Cartagena [STAFF PHYSICIAN] - 03/03/22 10:00 am Instructions Instructions: How to Use an Incentive Spirometer, Wound Infection, How to Change Your Wound Dressing, [id number], Urinary Tract Infection, Adult, [id number], Laparoscopic Appendectomy, Adult, Care After, [id number], Sutures, Coldiron, or Adhesive Wound Closure, [id number]-[id number], Managing Your Hypertension, Appendicitis, Adult, [id number] Stand Alone Forms: Excuse From Work or School, Precautions for [facility], [facility], Patient Portal, Social Distancing
[2022-02-25] MEDS ORDERED: ROCEPHIN VIAL 1 GRAM 1 G in NS 100 ML IV 100 ML IV SCH (21:00)
--- NOTE | 2022-02-26 12:01 | DR.OPNOTE ---
OP NOTE Pre-Op Diagnosis: Acute appendicitis Post-Op Diagnosis: same Procedure Date Date Of Procedure: 02/25/22 Procedure: PROCEDURE : laparoscopic appendectomy NARRATIVE : The patient was taken to the operative suite, place in supine position and general endotracheal anesthesia induced. The entire abdomen was prepped and draped in sterile fashion. Time out for the procedure obtained. She was placed in mild Trendelenburg position and rolled to her left. A 5 mm incision was made lateral to the left rectus sheath online with the umbilicus and a 5 mm optical trocar used to enter the abdominal cavity. The abdomen was insufflated to 15 mm of mercury with carbon dioxide. Under direct vision a 5 mm trocar placed above the pubic tubercles in the midline and a 12 mm trocar placed through a left lower quadrant incision. The appendix was easily identified and noted to have suppurative appendicitis with no evidence of perforation. . The mesentery and the base of the appendix were divided with fires of the endoscopic stapler. Appendix placed in a specimen bag and brought out through the left lower quadrant trocar sight. Abdomen was irrigated with saline and suctioned free. Hemostasis obtained with electrocautery. All trocars removed and all incisions closed with interrupted subcutaneous 3-0 Vicryl sutures and the skin incisions closed with steri-strips. A total 20 cc's of 0. 5% Marcaine was distributed between the th ree laparoscopic incisions with a 25 gauge needle. The patient was extubated and taken to the recovery room in good condition. Type of Anesthesia: Local (0.5% Marcaine) and General Anesthetic w/ETT Findings: acute suppurative appendicitis Specimen/Pathology: appendix Type of Fluids Used:: Lactated Ringers EBL: < 20 cc Drains/Tubes Placed: None Complications:: none Needle/Sponge Count:: correct Disposition/Condition: Pt. tolerated procedure without difficulty. Extubated in the OR and taken to PACU in stable condition.
== END 2022-02-25 15:00 | disposition home or self-care (01) ==
LOC: MED/SURG 17:12 → ER 17:12 → ICU 17:12 → MED/SURG 23:31
PROVIDERS: ADMIT Surgery; ATTEND Surgery
PROC: APPYLAP (ICD-10-PCS; 2022-02-25 11:00)
DX: N83.292 Other ovarian cyst, left side; E87.1 Hypo-osmolality and hyponatremia; K35.890 Other acute appendicitis without perforation or gangrene; N83.291 Other ovarian cyst, right side; R10.31 Right lower quadrant pain; I10 Essential (primary) hypertension; N30.00 Acute cystitis without hematuria